=== PATIENT | female | born 1995 | race Caucasian/White ===

== ENCOUNTER 2021-05-14 10:13 | Outpatient (CLI) | payer OTHER, SELFPAY ==
[2021-05-14 10:56] LABS: Hematocrit 35.2 % (37.0-47.0); Hemoglobin 10.6 g/dL (12.0-15.0)
--- NOTE | 2021-05-14 11:03 | ECG_ITS ---
Measurements Intervals [place] Rate: 52 P: 59 ME: 170 QRS: 42 QRSD: 98 T: 28 QT: 458 QTc: 426 Interpretive Statements SINUS BRADYCARDIA BORDERLINE ECG Electronically Signed On 05-14-2021 12:08:37 BLOW TORCH OPERATOR by Miguel Angel Mendez D.O.
== END 2021-05-14 10:14 | disposition home or self-care (01) ==
PROVIDERS: Visit Provider Anesthesiology
DX: Z41.9 Encounter for procedure for purposes other than remedying health state, unspecified (principal)
CPT/HCPCS: 36415; 85014; 85018; 93005

== ENCOUNTER 2021-05-17 00:49 | Day surgery (SDC) | payer OTHER, SELFPAY ==
[2021-05-09 09:57] VITALS: BMI 28.8
--- NOTE | 2021-05-09 10:08 | PC.NURSE ---
Report to the Outpatient Waiting Room, entrance under the green pavilion located off [facility], at time 6:00 on date 05/17/21. OR Time: 7:30. - You will be asked a series of questions to screen for COVID 19 for your protection. - A mask is required within the hospital. - No visitors are allowed at this time. Preoperative COVID Testing Requirements: COVID TEST 05/14 AT 9:50 No COVID Test needed if: (proof is required; if not received patient will have Rapid Test prior to entry) - Patient has received COVID Vaccine at least 14 days prior to procedure date or - Patient has positive COVID test result within last 90 days of surgery date. COVID Test needed if above criteria is not met If not COVID vaccinated a COVID test must be conducted within 72 hours of surgery and patient is asked to isolate self from time of testing until procedure. You will go to the [facility] for your COVID testing. The [facility] is located at the corner of [address] [facility]. You will only be called if COVID results are positive and your surgeon may reschedule your elective surgery date. Patients may have clear liquids (water, carbonated beverages, clear teas, apple juice) until 3 hours prior to surgery (4:30) with a maximum of 20 ounces. - No food from midnight until time of surgery Take the following medications with a SIP of water the morning of surgery: INHLAER (IF NEEDED) Medications to discontinue per physician: N/A Date to take last dose: N/A Please no make-up, nail korean, hairspray, perfume, deodorant, or body powder the day of surgery. No jewelry (including any body piercings) or valuables the day of surgery, leave them at home. Please take a shower or bath the night before, or the morning of, surgery with an antibacterial soap. Wear comfortable, loose fitting clothing. - Jewelry must be removed prior to entering the operating room. Rings and piercings that are not removed may be cut off. - The hospital will not accept responsibility for valuables. - Please leave all valuables, including medications, at home the day of surgery. If you are going home after surgery, a licensed automobile drivers must drive you home. - NO public transportation without another adult. - We recommend that an adult stay with you for 24 hours following discharge. - We also recommend that you do not drive, make important decision, drink alcoholic beverages, or take any drugs that were not prescribed by your health care provider for at least 24 hours after your discharge time. Follow any additional instructions given to you from your surgeon. Telephone instructions given to ROXANE BOATENG and asked if any additional questions and then verbalized understanding. Patient advised to call surgeon office or pre surgery nurse liaison [phone] if any additional questions.
[2021-05-17] VITALS (10 sets, daily range): BP systolic 91–115; BP diastolic 54–75; PULSE 62–83; RESP 12–18; TEMP 35.8–36.8; O2SAT 100
[2021-05-17 06:28] LABS: Urine Cotinine NEGATIVE
[2021-05-17] MEDS: LACTATED RINGERS 1,000 ML 30 ML IV CONT ×2 (06:40→12:47)
[2021-05-17] MEDS: SCOPOLAMINE 1.5 MG PATCH TRANSDERM (06:43)
--- NOTE | 2021-05-17 06:49 | WPDANESEPPF ---
Anes - Initial Pre Proc Eval Procedure: Operation Date: 05/17/21 07:30 Proposed Procedures p Abdominoplasty with Liposuction - Pineda Isaac MD Date/Time: 05/17/21 06:49 Surgeon: Pineda Isaac MD Pre Op Diagnosis: skin laxity, localized adiposity Patient Data Age: 26 Gender: F Height: 1.63 m Weight: 75.6 kg Allergies Allergy/AdvReac Type Severity Reaction Status Date / Time sulfamethoxazole Allergy Hives Verified 05/09/21 09:56 [From Bactrim] trimethoprim [From Bactrim] Allergy Hives Verified 05/09/21 09:56 Home Medications Medication Instructions Recorded Confirmed Type albuterol sulfate 90 mcg/actuation 1 inhalation INHALATION Q4H PRN 09/02/19 05/09/21 History aerosol inhaler docusate sodium 100 mg capsule 100 mg PO DAILY #14 cap 05/04/21 05/09/21 Rx ondansetron HCl 4 mg tablet 4 mg PO Q8H #21 tablet 05/04/21 05/09/21 Rx carisoprodol 350 mg tablet 350 mg PO TID PRN #21 tablet 05/05/21 05/09/21 Rx oxycodone-acetaminophen 5 mg-325 1 tablet PO Q6H PRN #30 tablet 05/05/21 05/09/21 Rx mg tablet Laboratory Tests 05/17/21 06:12 Cotinine Negative Patient hx anesthesia problems: none Family hx anesthesia problems: none Results Review: All pre-operative results and documents have been reviewed as part of the pre-operative evaluation. [facility] Past Medical History Medical History (Updated 05/17/21 @ 06:49 by Solomon Martins MD) Overweight Surgical History Surgical History History of appendectomy Social History Social History Smoking status: Unknown if ever smoked Alcohol intake: never Substance use: never Substance use type: does not use Living arrangements: with family Spiritual care concerns: No Anes - Eval Final PreProcedure Day of Procedure 05/17/21 06:49 Patient weight: overweight Heart: regular rate and rhythm Lungs: clear to auscultation Airway: Mallampati scale class II Neurological: alert and oriented Last oral intake: >/= 8 hours ASA classification: II Emergent: no Anesthetic plan: proceed Anesthesia type and monitoring: general ETT and standard monitoring Results Review: All pre-operative results and documents have been reviewed as part of the pre-operative evaluation. Informed Consent: The patient's anesthetic plan and its attendant risks and benefits were discussed with the patient/family/POA. Questions were solicited and answers provided to the satisfaction of the patient/family/POA.
--- NOTE | 2021-05-17 06:54 | WPDHPUPDATE1 ---
History and Physical Update Update Date/Time: 05/17/21 06:54 History and Physical has been reviewed, including an updated exam of the patient. There are NO changes in the patient's condition. Risks, benefits, and alternatives have been discussed and questions answered. Patient agrees to proceed with procedure.
--- NOTE | 2021-05-17 07:14 | W.PM.PROC2 ---
Procedure Note - Detailed Date of Procedure 05/17/21 Pre-op Diagnosis skin laxity, localized adiposity Post-op Diagnosis same Procedure Performed 1. Progressive tension abdominoplasty 2. Suction lipectomy abdomen / flank Surgeon Pineda Isaac MD Anesthesia general Findings Tissue removed: 2694 grams Lipoaspirate: 3200 cc Description of Procedure They are here today for abdominoplasty / suction lipectomy. Previously and again today the risks, benefits, alternatives were discussed in extensive detail. I wanted them to be very realistic about the risks involved as well as expectations. She understands she may have horizontal laxity which she could address at a second stage (after her expense) if she desires. We discussed aftercare and what to monitor for. I was very upfront about the risks of wound breakdown leading to loss of skin, open wounds, and need for additional procedures with permanent abdominal deformity. We discussed DVT/PE risks and management. Made sure answered all of their questions to their satisfaction today and consent was obtained. They were marked in the preoperative holding area with their verification. The patient was taken to the operating room placed supine on the operating table. Anesthesia was provided by anesthesiology. A Dao catheter was started. They were prepped and draped in a standard sterile fashion 360 degrees. A surgical time-out was taken. Suction lipectomy was completed based on S.A.F.E. technique in multiple planes an passes utilizing a 5mm basket cannula. Patient was turned side to side with care taken to protect from injury during these transitions. I placed the patient in a flexed position to verify the upper and lower markings would reach. I then placed supine. A thorough abdominal examination was completed. Stab incisions were made and tumescent solution infiltrated. A liposuction basket cannula was utilized to provide discontinuous undermining. A 10 blade was used to make the upper incision. I continued dissection down to the level of fascia. Elevated just what was necessary for repair of the diastasis. I then again flexed the bed to verify the upper skin flap would reach the lower markings without tension. Once verified I placed her supine once again and a 10 blade used to make the lower incision. I elevated up to level the umbilicus and left the umbilicus intact on a well-vascularized stalk. The intervening tissue was removed. A 2 mm blunt cannula with 0.5% bupivicaine was injected deep to the fascia bilaterally. I plicated the diastasis recti using 0 PDO stratafix barbed suture. This was in 2 separate layers using 2 separate sutures as well. I repaired around the umbilicus leaving plenty of room for well-vascularized stalk of the umbilicus with 2-0 PDS. I also repaired lateral to the rectus using two layers of 0 PDO stratafix. The patient was flexed and starting from superior to inferior began plication using 2-0 Vicryl to obliterate all space in a standard progressive tension fashion. At the umbilicus I marked out the location of the skin and inset this with 3-0 Monocryl and 4-0 Vicryl. I continued the remainder of the plication using 2-0 Vicryl until I reached my lower planned scar line. I trimmed any excess skin of the upper flap making sure this was a tension-free closure. I then approximated using a 3 point suture with 2-0 Vicryl followed by 3-0 stratafix ,running subcuticular 4-0 Monocryl, and tissue glue. Fluffs and an abdominal binder were placed. The patient was transferred to the bed in a flexed position. Awoken and taken to the PACU without difficulty. All instrument and sponge counts were correct at the end of the case. Estimated Blood Loss 75 Drains No Packing No Pathology none sent Complications No immediate complications Condition stable Disposition PACU
[2021-05-17] MEDS: ceFAZolin 2 GM/D5W 50 ML 2 GM/50 ML BAG IVPB (07:35)
[2021-05-17] MEDS: LACTATED RINGERS IRRIG 1,000 ML, LIDOCAINE HCL 1% LOCAL INJ 50 ML, EPINEPHrine HCL INJ ... INFILTRATE ×4 (08:20→09:26)
[2021-05-17] MEDS: BUPIVACAINE/EPINEPHRINE 0.5% 30 ML VIAL 60 ML INFILTRATE (10:00)
[2021-05-17] MEDS: ceFAZolin SODIUM 1 GM VIAL IV PUSH (11:22)
--- NOTE | 2021-05-17 12:26 | SUR.OPER ---
EBL 75ML.
--- NOTE | 2021-05-17 12:51 | SUR.OPER ---
BINDER PLACED PRIOR TO MOVING PATIENT FROM OR BED TO PATIENT BED. REMAINED IN SITTING POSITION/3 PILLOWS UNDER LEGS. TO PACU IN SITTING POSITION.
[2021-05-17] MEDS: MORPHINE SULFATE (*CRX) 2 MG/ML INJ IV PUSH (14:33)
[2021-05-17] MEDS: LACTATED RINGERS 1,000 ML 125 ML IV CONT (14:34)
[2021-05-17] MEDS: oxyCODONE/ACETAMINOPHEN (*CRX) 5-325 MG TABLET PO ×2 (17:19→21:00)
[2021-05-17] MEDS: carisoprodoL (*CRX) 350 MG TABLET PO (17:20)
[2021-05-17] MEDS: ENOXAPARIN 40 MG/0.4 ML SYRINGE SUB-Q (20:30)
[2021-05-17] MEDS: DOCUSATE SODIUM 100 MG CAPSULE PO (20:30)
[2021-05-18] MEDS: oxyCODONE/ACETAMINOPHEN (*CRX) 5-325 MG TABLET PO ×3 (00:12→10:03)
[2021-05-18] MEDS: carisoprodoL (*CRX) 350 MG TABLET PO ×3 (00:12→10:04)
[2021-05-18 05:40] VITALS: BP 96/64; PULSE 88; RESP 16; TEMP 36.3
[2021-05-18] MEDS: DOCUSATE SODIUM 100 MG CAPSULE PO (07:08)
--- NOTE | 2021-05-18 07:08 | WPDPN ---
Progress Note: A&P Assessment and Plan (1) Skin laxity: Code(s): L57.4 - Cutis laxa senilis Status: Acute Assessment and Plan: She is doing very well after progressive tension abdominoplasty and suction lipectomy. Will discharge home. Follow-up in 1 week. She has chosen ambulation for DVT prophylaxis. We had a lengthy discussion about the care. What to monitor for. Activity limitations. What is a medical emergency and when to call 911/proceed to ER. She will call with any questions or concerns. Subjective Date/time seen: 05/18/21 07:08 Last night was able to ambulate. Slept in chair. Doing very well. No f/c. No n/v. No SOB. No chest pain. No calf tenderness. Ambulating. Tolerating PO. Pain controlled. Review of Systems Review of Systems: All systems reviewed & are unremarkable except as noted in HPI and below Exam Narrative: A&O NOD Resp unlabored Abdomen soft. No SOI. No hematoma. No seroma. Good color and capillary refill. No calf tenderness. Negative Homann's Objective Data Vital Signs Vital Signs: Vital Signs - 24 hr 05/17/21 07:29 05/17/21 12:47 05/17/21 13:00 Temperature 36.8 C 35.8 C L 35.9 C L Pulse Rate 64 81 71 Respiratory Rate 16 12 16 Blood Pressure 102/61 102/72 115/75 Pulse Oximetry 100 100 100 05/17/21 13:15 05/17/21 13:30 05/17/21 13:45 Temperature 36.1 C L 36.2 C L Pulse Rate 73 68 62 Respiratory Rate 18 16 16 Blood Pressure 112/73 104/72 98/69 L Pulse Oximetry 100 100 100 05/17/21 14:00 05/17/21 14:30 05/17/21 16:30 Temperature 36.3 C L 36.6 C Pulse Rate 68 67 78 Respiratory Rate 16 14 18 Blood Pressure 103/73 91/59 L 97/56 L Pulse Oximetry 100 05/17/21 20:45 05/18/21 05:40 Temperature 36.5 C 36.3 C L Pulse Rate 83 88 Respiratory Rate 16 16 Blood Pressure 97/54 L 96/64 L Pulse Oximetry Intake/Output Intake/Output: Intake & Output 05/15/21 05/16/21 05/17/21 05/18/21 23:59 23:59 23:59 23:59 Intake Total 1850 Output Total 1000 300 Balance 850 -300 Meds/Results Medications: Active Medications Generic Name Dose Route Start Last Admin Trade Name Freq PRN Reason Stop Dose Admin Albuterol 1 puff 05/17/21 14:04 Albuterol Sulfate (*Sp) Aerosol 1 Puff INHALATION Q4H PRN Bronchospasm Carisoprodol 350 mg 05/17/21 18:00 05/18/21 05:25 Carisoprodol (*Crx) 350 Mg Tablet PO 350 mg Q6HR STEVENSON Administration Diazepam 5 mg 05/17/21 12:34 Diazepam (*Crx) 5 Mg Tablet PO TID PRN Anxiety Docusate Sodium 100 mg 05/17/21 21:00 05/18/21 07:08 Docusate Sodium 100 Mg Capsule PO 100 mg Q12HR STEVENSON Administration Enoxaparin Sodium 40 mg 05/17/21 20:00 05/17/21 20:30 Enoxaparin 40 Mg/0.4 Ml Syringe SUB-Q 40 mg QPM STEVENSON Administration Morphine Sulfate 2 mg 05/17/21 12:34 05/17/21 14:33 Morphine Sulfate (*Crx) 2 Mg/Ml Inj IV PUSH 2 mg Q2H PRN Administration Pain Ondansetron HCl 4 mg 05/17/21 12:34 Ondansetron Inj 4 Mg/2 Ml Vial IV PUSH Q6H PRN Nausea Oxycodone/Acetaminophen 1 - 2 tablet 05/17/21 12:34 05/18/21 05:25 Oxycodone/Acetaminophen (*Crx) 5-325 Mg Tablet PO 1 tablet Q6H PRN Administration Pain
--- NOTE | 2021-05-18 07:12 | P.DS_ITS ---
DS: Admitting Diagnosis Discharge Date 05/18/2021 Admitting Diagnosis Skin laxity, localized adiposity DS: Discharge Diagnosis Discharge Diagnosis (1) Skin laxity: Code(s): L57.4 - Cutis laxa senilis Status: Acute (2) Localized adiposity: Code(s): E65 - Localized adiposity Status: Acute DS: Summary Hospital Course Hospital Course: She underwent progressive tension abdominoplasty with suction lipectomy. Overnight has done very well and will discharge home. Time Spent with Patient Time attestation: Total time spent providing and/or coordinating discharge services: 20 minutes Exam Narrative: A&O NOD Resp unlabored Abdomen soft. No SOI. No hematoma. No seroma. Good color and capillary refill. No calf tenderness. Negative Homann's Discharge Plan Discharge Patient Disposition: Home, Self-Care Discharge Instructions: POST OPERATIVE DISCHARGE INSTRUCTIONS PINEDA ISAAC M.D. [facility] [address] [place] [address] * No driving for 24 hours after anesthesia and while you are taking pain medication. * Take all prescribed medication as directed * Diet as tolerated. * No lifting or activity that raises blood pressure for 48 hours. * Regular walking / ambulation. * No showering until directed to. Once you shower do not take pain medication before showering as the combination of medication and heat may cause you to feel dizzy or pass out. * No pools or tubs for 2 weeks. * Call with any questions or concerns. * No straining or lifting more than 20 pounds. * Slowly stand up straight as tolerated over the week. * Dressing Care: May shower. Continue abdominal binder 23 hours per day. * Remove the Scopolamine patch that was placed behind your ear in 72 hours or less. Wash your hands after touching. If you have any questions or concerns, please call the office . If it is after hours you will be directed to the regional sales trainer exchange. Shortness of breath, chest pain, or other medical emergency dial 911 / proceed to the Emergency Room. Stand Alone Forms: General Discharge Instructions Follow-up/Referrals: Pineda Isaac MD [Physician] - 1 Week Discharge Medications: Continued albuterol sulfate 90 mcg/actuation HFA aerosol inhaler 1 inhalation INHALATION Q4H PRN (Reason: Bronchospasm) RF: 0 docusate sodium [Colace] 100 mg capsule 100 mg PO DAILY Qty: 14 RF: 0 ondansetron HCl 4 mg tablet 4 mg PO Q8H Qty: 21 RF: 0 carisoprodol [Soma] 350 mg tablet 350 mg PO TID PRN (Reason: muscle pain) Qty: 21 RF: 0 oxycodone-acetaminophen [Percocet] 5-325 mg tablet 1 tablet PO Q6H PRN (Reason: pain) Qty: 30 RF: 0
[2021-05-18 07:19] VITALS: BP 91/52; PULSE 96; RESP 16; TEMP 36.4; O2SAT 100
--- NOTE | 2021-05-18 07:26 | PC.NURSE ---
On 05/18/21, the student, Geovanna Stafford, provided care and completed [facility] documentation on this patient. I have reviewed the student's documentation and agree with the findings.
--- NOTE | 2021-05-18 07:35 | PC.NURSE ---
Dr. Isaac at bedside. Discharge instructions given per MD. Pt. doing well. No questions or concerns voiced. States that shes has all needed medications at home and will return for MD visit as scheduled.
--- NOTE | 2021-05-18 08:59 | WPDANESPN ---
Anes - Prog Note Post-Op Date/Time: 05/18/21 08:59 Cardiovascular status: normal Respiratory status: normal Airway patency: baseline Mental status: baseline Post-Op hydration status: normal Vital Signs: Last Vital Signs Temp 36.4 C 05/18/21 07:19 Pulse 96 05/18/21 07:19 Resp 16 05/18/21 07:19 BP 91/52 L 05/18/21 07:19 Pulse Ox 100 05/18/21 07:19 Pain Score (VAS): 4 I/O: Intake & Output 05/17/21 05/18/21 05/18/21 23:59 07:59 15:59 Intake Total 1200 500 Output Total 1000 300 Balance 200 200 Post-procedural complaints: none Patient Feedback: Patient satisfied with anesthetic care.
== END 2021-05-18 10:06 | disposition home or self-care (01) ==
LOC: ANHSURGERY 07:19 → ANHOB2 13:59
PROVIDERS: Visit Provider Surgery Plastic and Reconstructive Surgery
PROC: (CPT 15877; principal; 2021-05-17 07:30)
DX: Z41.1 Encounter for cosmetic surgery (principal); L57.4 Cutis laxa senilis; E65 Localized adiposity; Z79.899 Other long term (current) drug therapy
CPT/HCPCS: 15877; 15830; 15847; 80307; 99199; A9270; J0171; J0690; J1100; J1200; J1650; J2250; J2270; J2370; J2405; J2704; J2710; J3010; J7120